=== PATIENT | male | born 1990 | race Two or more races ===

== ENCOUNTER 2021-06-02 06:55 | Emergency (ER) | payer MEDICAID ==
[~2021-06-02] VITALS: Ht 185.4 cm; Wt 90.9 kg
[~2021-06-02 06:55] MED LIST: PSEU120T84 PO
[2021-06-02 07:34] VITALS: BP 115/84
== END 2021-06-02 10:30 | disposition left against medical advice (07) ==
LOC: ER 06:55
DX: R10.9 Unspecified abdominal pain (principal); Z53.21 Procedure and treatment not carried out due to patient leaving prior to being seen by health care provider

== ENCOUNTER 2022-02-11 16:28 | Emergency (ER) | payer MEDICAID ==
[~2022-02-11] VITALS: Ht 185.4 cm; Wt 81.8 kg
[2022-02-11 16:40] VITALS: BP 123/79
--- NOTE | 2022-02-11 19:07 | NUR ---
PT NOT IN LOBBY
--- NOTE | 2022-02-11 19:19 | NUR ---
PT NOT IN LOBBY
== END 2022-02-11 20:05 | disposition left against medical advice (07) ==
LOC: ER 16:28
DX: R53.1 Weakness (principal); Z53.21 Procedure and treatment not carried out due to patient leaving prior to being seen by health care provider

== ENCOUNTER 2022-02-11 21:20 | Emergency (ER) | payer MEDICAID ==
[~2022-02-11] VITALS: Ht 185.4 cm; Wt 81.8 kg
[2022-02-11 23:25] VITALS: BP 122/77
== END 2022-02-11 23:27 | disposition home or self-care (01) ==
LOC: ER 21:21
DX: R53.83 Other fatigue (principal); F15.90 Other stimulant use, unspecified, uncomplicated; F19.90 Other psychoactive substance use, unspecified, uncomplicated; Z72.89 Other problems related to lifestyle; Z79.899 Other long term (current) drug therapy
CPT/HCPCS: 99281